=== PATIENT | female | born 1995 | race Two or more races ===

== ENCOUNTER 2024-12-26 09:56 | Emergency (ER) | payer BC ==
[~2024-12-26] VITALS: Ht 165.1 cm; Wt 61.2 kg
[2024-12-26] MEDS ORDERED: PEPCID AC10 MG (10:15)
[2024-12-26] MEDS ORDERED: BENADRYL25 MG (10:15)
[2024-12-26] MEDS ORDERED: 0.9 % SODIUM CHLORIDE 1,000 ML IV ONE (11:00)
[2024-12-26] MEDS ORDERED: DIPHENHYDRAMINE HCL 50 MG/ML VIAL 1ML IV ONE (11:00)
[2024-12-26] MEDS ORDERED: METHYLPREDNISOLONE SOD SUCC 125 MG VIAL IV ONE (11:00)
[2024-12-26] MEDS ORDERED: EPINEPHRINE HCL/PF 1 MG/ML AMPUL IV ONE (11:00)
[2024-12-26] MEDS ORDERED: DIPHENHYDRAMINE HCL 50 MG/ML VIAL 1ML ONE (11:05)
[2024-12-26] MEDS ORDERED: EPINEPHRINE HCL/PF 1 MG/ML AMPUL ONE (11:05)
[2024-12-26] MEDS ORDERED: METHYLPREDNISOLONE SOD SUCC 125 MG VIAL ONE (11:05)
[2024-12-26] MEDS ORDERED: MEDROLPACK PO (13:19)
[2024-12-26] MEDS ORDERED: BENADRYL ALLERG25 MG PO (13:19)
== END 2024-12-26 13:20 | disposition home or self-care (01) ==
LOC: ER 09:57
DX: T78.40XA Allergy, unspecified, initial encounter (principal); X58.XXXA Exposure to other specified factors, initial encounter; Z88.8 Allergy status to other drugs, medicaments and biological substances